=== PATIENT | male | born 1995 | race Caucasian/White ===

== ENCOUNTER 2016-09-06 08:32 | Emergency (ER) | payer OTHER, BC ==
[~2016-09-06] VITALS: Ht 188 cm; Wt 90.7 kg
[2016-09-06 08:39] VITALS: BP 136/72
[2016-09-06] MEDS ORDERED: ZOLO50TA PO (08:49)
[2016-09-06] MEDS ORDERED: CLON0.5T PO (08:49)
[2016-09-06] MEDS ORDERED: ZOFR20TA PO (08:49)
[2016-09-06] MEDS ORDERED: KETOROLAC 60 MG/2 ML VIAL (J1885) IM ONE (09:15)
--- NOTE | 2016-09-06 10:04 | REP ---
LEFT FEMUR, FOUR VIEWS: HISTORY: Leg pain. There is no acute fracture or dislocation. The joint spaces are normal in appearance. IMPRESSION: There is no acute fracture or dislocation. Signed by Ashok Dyer MD 09/06/2016 10:23 A
--- NOTE | 2016-09-06 10:05 | REP ---
LEFT TIBIA/FIBULA, FOUR VIEWS: HISTORY: Leg pain. There is no acute fracture or dislocation. The joint spaces are normal in appearance. IMPRESSION: There is no acute fracture or dislocation. Signed by Ashok Dyer MD 09/06/2016 10:23 A
--- NOTE | 2016-09-06 10:06 | REP ---
ABDOMEN, FLAT AND UPRIGHT; PA CHEST, THREE VIEWS: HISTORY: Left leg pain. Air is present in small and large intestine. There are no air fluid levels or dilated loops of intestine. There is no pneumoperitoneum. The lungs are clear. IMPRESSION: Nonspecific bowel gas pattern. Signed by Ashok Dyer MD 09/06/2016 10:23 A
== END 2016-09-06 10:38 | disposition home or self-care (01) ==
LOC: M ED 10:20
DX: S80.12XA Contusion of left lower leg, initial encounter (principal); V47.5XXA Car driver injured in collision with fixed or stationary object in traffic accident, initial encounter; Y92.410 Unspecified street and highway as the place of occurrence of the external cause; Y93.89 Activity, other specified; Y99.0 Civilian activity done for income or pay
CPT/HCPCS: 73552; 73590; 74022; 96372; 99283; J1885